=== PATIENT | male | born 2000 | race Caucasian/White ===

== ENCOUNTER 2021-09-22 22:17 | Emergency (ER) | payer OTHER, SELFPAY ==
[2021-09-22 22:22] VITALS: BP 152/98; PULSE 77; RESP 18; TEMP 36.8; O2SAT 97
[2021-09-22 22:54] VITALS: BP 134/75; PULSE 72; RESP 14; O2SAT 97
--- NOTE | 2021-09-22 22:54 | ED.EYEPROB ---
HPI - Eye Problem General Chief complaint: Eye Problems Stated complaint: left eye pain Time Seen by Provider: 09/22/21 22:38 Source: patient Mode of arrival: ambulatory Limitations: no limitations History of Present Illness HPI Narrative: This is a 21-year-old male that presents to the emergency department for left eye irritation ongoing since this morning. Reports he woke up with a feeling of having a foreign body in the left eye. 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 He does wear his glasses at work. He irrigated his eye thoroughly. He has had some relief in his symptoms. Does still have some mild irritation in the left eye. Denies vision changes or abnormal drainage. Related Data Home Medications Medication Instructions Recorded Confirmed No Home Medications 06/24/21 06/24/21 Allergies Allergy/AdvReac Type Severity Reaction Status Date / Time No Known Allergies Allergy Unverified 06/24/21 07:50 Review of Systems Review of Systems: CONSTITUTIONAL: Denies fever EYES: Denies visual changes, redness, or discharge. All systems reviewed & are unremarkable except as noted in HPI and below PMFSH Past Medical History Medical History Horseshoe kidney Surgical History Surgical History History of tonsillectomy Family History Family History Mother Hypertension Grandparent Heart disease Hypertension Social History Social History Smoking status: Never smoker Second hand tobacco smoke exposure: No Alcohol intake: current Alcohol use details: social Substance use: current Substance use type: marijuana Gender identity (if verbalized by the patient): Male Exam Narrative: GENERAL: Well-appearing, well-nourished, and in no acute distress. HEAD: Normocephalic, atraumatic. EYES: PERRLA and EOMI. No foreign body noted, eyelid everted. Small conjunctival abrasion noted below the iris on the left. Visual acuity 20/15 R, 20/15 L EXTREMITIES: Normal range of motion. No edema. SKIN: Warm, dry, no rash. NEURO: No focal deficits. Alert and oriented x3. PSYCH: Normal mood and affect Course Vital Signs Vital signs: Vital Signs Temperature 98.2 F 09/22/21 22:22 Pulse Rate 77 09/22/21 22:22 Respiratory Rate 18 09/22/21 22:22 Blood Pressure 152/98 H 09/22/21 22:22 Pulse Oximetry 97 09/22/21 22:22 Oxygen Delivery Room Air 09/22/21 22:22 Temperature 98.2 F 09/22/21 22:22 Pulse Rate 72 09/22/21 22:54 Respiratory Rate 14 09/22/21 22:54 Blood Pressure 134/75 09/22/21 22:54 Pulse Oximetry 97 09/22/21 22:54 Oxygen Delivery Room Air 09/22/21 22:22 MDM - Eye Problem MDM Narrative Medical decision making narrative: Patient presents to the ER for left eye irritation noted since this morning. He denies any visual changes. No foreign bodies noted on exam. He does have a small conjunctival abrasion. Will be started on erythromycin ointment and was instructed to have follow up with his eye doctor. He was given warnings to return to the ER Critical Care Time Critical Care Time Critical Care Time: No Discharge Plan Discharge Clinical Impression: Abrasion of conjunctiva, left Patient Disposition: Home, Self-Care Condition: Stable Instructions: Antibiotic Form, Corneal Abrasion (ED) Additional Instructions: Return to the ER if you experience fever, redness and swelling of your eye, abnormal drainage from your eye, vision changes, or any other symptoms that are concerning to you Apply ~1cm ribbon into affected eye 4 times daily for 3 days Follow up with your eye doctor Prescriptions: No Action No Home Medications Follow-up/Referrals: Casper Andrade MD [Primary Care Provider] -
[2021-09-23] MEDS: ERYTHROMYCIN OPHTH OINTMENT 1 GM TUBE 1 APPLIC LEFT EYE (01:21)
== END 2021-09-23 00:24 | disposition home or self-care (01) ==
PROVIDERS: Emergency Provider Emergency Medicine; PCP Internal Medicine
DX: S05.02XA Injury of conjunctiva and corneal abrasion without foreign body, left eye, initial encounter (principal); Q63.1 Lobulated, fused and horseshoe kidney; X58.XXXA Exposure to other specified factors, initial encounter
CPT/HCPCS: 99283; A9270

== ENCOUNTER 2024-01-22 23:26 | Emergency (ER) | payer OTHER, SELFPAY ==
[2024-01-22 23:46] VITALS: BP 117/58; PULSE 81; RESP 20; TEMP 36.8; O2SAT 98
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
[2024-01-23 04:13] VITALS: BP 118/66; PULSE 76; RESP 15; O2SAT 100
== END 2024-01-23 03:45 | disposition home or self-care (01) ==
PROVIDERS: Emergency Provider Emergency Medicine
DX: N50.812 Left testicular pain (principal); N50.811 Right testicular pain; Q63.1 Lobulated, fused and horseshoe kidney; W51.XXXA Accidental striking against or bumped into by another person, initial encounter
CPT/HCPCS: 76870; 93976; 99284